=== PATIENT | female | born 1950 | race Caucasian/White ===

== ENCOUNTER 2017-03-13 06:40 | Day surgery (SDC) | payer MEDICARE, OTHER ==
[2017-03-13] MEDS ORDERED: ACETAMINOPHEN 325 MG ONE (06:44)
[2017-03-13] MEDS: CYCLOPENTOLATE 1% SOL ONE ×2 (07:17→07:30)
[2017-03-13] MEDS: PROPARACAINE HCL 0.5% OPHTHALMIC SOL ONE ×3 (07:17→08:20)
[2017-03-13] MEDS: PHENYLEPHRINE HCL 10% OPHTHAL SOL ONE ×2 (07:17→07:31)
[2017-03-13] MEDS ORDERED: MIDAZOLAM 2 MG/2 ML SOL ONE (07:43)
[2017-03-13] MEDS ORDERED: FENTANYL 100MCG/2ML SOL ONE (07:43)
[2017-03-13] MEDS ORDERED: TRYPAN BLUE 0.5 ML SOL IO ONE (08:15)
[2017-03-13] MEDS ORDERED: LIDOCAINE HCL 1% MPF SOL ONE (08:15)
[2017-03-13] MEDS ORDERED: POVIDONE IODINE 5% SOL ONE (08:15)
[2017-03-13] MEDS ORDERED: BSS W/ 0.25MG P.F. EPI 1 BOTTLE ONE (08:15)
[2017-03-13] MEDS ORDERED: ACETAZOLAMIDE 500 MG CER ONE (08:43)
[2017-03-13 09:17] VITALS: BP 143/64; PULSE 57; RESP 20; TEMP 97; O2SAT 98
== END 2017-03-13 09:35 | disposition home or self-care (01) | DRG 125 ==
LOC: SURG 06:40
PROVIDERS: ATTEND Ophthalmology
DX: H25.9 Unspecified age-related cataract (principal)
CPT/HCPCS: J2250; J3010; J2001